=== PATIENT | male | born 1990 | race African-American/Black ===

== ENCOUNTER → 2023-12-01 08:21 | Outpatient (REF) | payer BC, SELFPAY | LOC: CLAB 08:21 | PROVIDERS: ATTENDING PHYSICIAN Specialist | DX: Z30.2 Encounter for sterilization (principal) | CPT/HCPCS: 88302 ==

== ENCOUNTER → 2024-05-20 15:39 | Outpatient (REF) | payer BC, SELFPAY | LOC: HWRAD 15:39 | PROVIDERS: ATTENDING PHYSICIAN Specialist; FAMILY PHYSICIAN Nurse Practitioner Family | DX: N20.0 Calculus of kidney (principal) | CPT/HCPCS: 74176 ==

== ENCOUNTER → 2024-06-08 16:30 | Outpatient (REF) | payer BC, SELFPAY | LOC: PAVMRI 16:30 | PROVIDERS: ATTENDING PHYSICIAN Orthopaedic Surgery; PRIMARYCARE PHYSICIAN Nurse Practitioner Family | DX: M25.551 Pain in right hip (principal) | CPT/HCPCS: 73721 ==

== ENCOUNTER → 2024-06-22 10:57 | Outpatient (REF) | payer OTHER, SELFPAY ==
[2024-06-24 14:47] LABS: Quantiferon Mitogen minus NIL 9.94 IU/mL; Quantiferon NIL 0.06 IU/mL; Quantiferon Plus TB1 minus NIL 0.01 IU/mL (<=0.34); Quantiferon TB Gold Plus Negative (Negative)
== END ==
LOC: OHS 10:57
PROVIDERS: ATTENDING PHYSICIAN Nurse Practitioner Family
DX: Z23 Encounter for immunization (principal)
CPT/HCPCS: 36415; 86480